=== PATIENT | female | born 1965 | race Two or more races ===

== ENCOUNTER 2021-04-05 10:32 | Outpatient (CLI) | payer OTHER | END 2021-04-05 10:50 | disposition home or self-care (01) | LOC: RAD 10:32 | PROVIDERS: ATTEND Urology | DX: N20.1 Calculus of ureter (principal) ==

== ENCOUNTER → 2021-04-08 11:49 | Outpatient (CLI) | payer OTHER | END | disposition home or self-care (01) | LOC: RAD 11:49 | PROVIDERS: ATTEND Urology | DX: D25.2 Subserosal leiomyoma of uterus (principal); N20.1 Calculus of ureter; K80.80 Other cholelithiasis without obstruction; M17.0 Bilateral primary osteoarthritis of knee ==

== ENCOUNTER 2021-04-21 09:06 | Outpatient (CLI) | payer OTHER | END 2021-04-21 09:15 | disposition home or self-care (01) | LOC: SONOGRAMA 09:06 → MAMO-SONO 09:15 | PROVIDERS: ATTEND Obstetrics & Gynecology | DX: D25.1 Intramural leiomyoma of uterus (principal); N85.01 Benign endometrial hyperplasia ==